=== PATIENT | female | born 1955 | race Two or more races ===

== ENCOUNTER 2021-02-04 19:37 | Emergency (ER) | payer MEDICARE, OTHER ==
[~2021-02-04] VITALS: Ht 172.7 cm; Wt 87.1 kg
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
[2021-02-04] MEDS ORDERED: HYDROCODONE/APAP 5/325MG TABLET ONE (19:58)
[2021-02-04] MEDS ORDERED: HYDROCODONE/APAP 5/325MG TABLET PO ONE (20:00)
--- NOTE | 2021-02-04 20:42 | NUR ---
ER MD AT BEDSIDE SPEAKING TO PT REGARDING PLAN OF CARE.
--- NOTE | 2021-02-04 20:46 | NUR ---
COVID SWAB COLLECETED AND SENT TO LAB
[2021-02-04 20:50] VITALS: BP 151/79
--- NOTE | 2021-02-04 20:50 | NUR ---
BLOOD WORK COLLECTED, SENT TO LAB.
--- NOTE | 2021-02-04 20:51 | NUR ---
EMT AT BEDSIDE FOR EKG
--- NOTE | 2021-02-04 20:55 | NUR ---
[facility] CALLED FOR TRAUMA HIGHER LEVEL OF CARE.
--- NOTE | 2021-02-04 20:56 | NUR ---
PT ACCEPTED BY DR [facility].
[2021-02-04] MEDS ORDERED: IV NS 0.9% 1,000 ML BAG IV ONE (21:00)
--- NOTE | 2021-02-04 21:00 | NUR ---
CALLED [facility] REGARDING TRANSPORTATION TO [facility]. ETA 60 MINUTES
[2021-02-04 21:02] LABS: BASOPHILS % (AUTO) 0.3 % (0.0-2.0); EOSINOPHILS % (AUTO) 0.5 % (0.0-6.0); HEMATOCRIT 44 % (33-45); HEMOGLOBIN 14.2 g/dL (11.5-14.8); LYMPHOCYTES # (AUTO) 1.7 K/uL (0.8-4.8); LYMPHOCYTES % (AUTO) 14.2 % (20.0-44.0); MEAN CORPUSCULAR HGB CONC 32 g/dl (31.0-36.0); MEAN CORPUSCULAR VOLUME 85 fL (82-100); MONOCYTES # (AUTO) 0.5 K/uL (0.1-1.30); MONOCYTES % (AUTO) 4.6 % (2.0-12.0); NEUTROPHILS # (AUTO) 9.5 K/uL (1.8-8.9); NEUTROPHILS % (AUTO) 80.4 % (43.0-81.0); PLATELET COUNT (AUTO) 239 K/uL (150-450); RED BLOOD CELL COUNT(AUTO) 5.15 MIL/uL (4.0-5.2); WHITE BLOOD COUNT (AUTO) 11.8 K/uL (4.3-11.0)
--- NOTE | 2021-02-04 21:09 | NUR ---
[facility] [phone]
[2021-02-04 21:12] LABS: CALCIUM, SERUM 8.8 mg/dL (8.5-10.1); POTASSIUM 3.9 mmol/L (3.5-5.1)
--- NOTE | 2021-02-04 21:14 | NUR ---
REPORT GIVEN TO AVINASH GARCIA
[2021-02-04] MEDS ORDERED: MORPHINE SULFATE INJ 4 MG/ML DISP.SYRIN ONE (22:21)
[2021-02-04] MEDS ORDERED: ONDANSETRON HCL/PF 4 MG/2 ML VIAL ONE (22:21)
--- NOTE | 2021-02-04 22:28 | NUR ---
[facility] AT BEDSIDE FOR TRANSPORT TO [facility]
[2021-02-04] MEDS ORDERED: MORPHINE SULFATE INJ 2 MG/ML DISP.SYRIN IV ONE (22:30)
[2021-02-04] MEDS ORDERED: ONDANSETRON HCL/PF 4 MG/2 ML VIAL IVP ONE (22:30)
== END 2021-02-04 22:40 | disposition short-term general hospital (02) ==
LOC: ER 19:39
DX: S27.2XXA Traumatic hemopneumothorax, initial encounter (principal); S22.42XA Multiple fractures of ribs, left side, initial encounter for closed fracture; S42.115A Nondisplaced fracture of body of scapula, left shoulder, initial encounter for closed fracture; W10.8XXA Fall (on) (from) other stairs and steps, initial encounter; Y92.019 Unspecified place in single-family (private) house as the place of occurrence of the external cause; S27.321A Contusion of lung, unilateral, initial encounter; Z20.822 Contact with and (suspected) exposure to COVID-19; Z88.6 Allergy status to analgesic agent; F17.290 Nicotine dependence, other tobacco product, uncomplicated
CPT/HCPCS: 36415; 70450; 71250; 72125; 80048; 85025; 85730; 87426; 93005; 96374; 96375; 99291; 99406; J2270; J2405; J7030; C9803